=== PATIENT | male | born 1975 | race Caucasian/White ===

== ENCOUNTER 2023-10-01 13:42 | Outpatient (CLI) | payer BC, SELFPAY | END 2023-10-01 13:43 | disposition home or self-care (01) | PROVIDERS: PCP Family Medicine; Visit Provider Family Medicine | DX: I10 Essential (primary) hypertension (principal); R53.83 Other fatigue; Z13.228 Encounter for screening for other metabolic disorders; Z13.29 Encounter for screening for other suspected endocrine disorder | CPT/HCPCS: 80053; 82043; 82570; 84270; 84402; 84403; 84443 ==

== ENCOUNTER 2023-10-13 11:23 | Outpatient (CLI) | payer BC, SELFPAY | END 2023-10-13 11:24 | disposition home or self-care (01) | PROVIDERS: PCP Family Medicine; Visit Provider Family Medicine | DX: Z12.5 Encounter for screening for malignant neoplasm of prostate (principal); Z13.220 Encounter for screening for lipoid disorders; E29.1 Testicular hypofunction; I10 Essential (primary) hypertension | CPT/HCPCS: 80061; 80074; 82533; 82728; 83001; 83002; 84146; 84403; G0103 ==

== ENCOUNTER 2023-11-14 08:49 | Outpatient (CLI) | payer BC, SELFPAY ==
--- NOTE | 2023-11-14 10:39 | W.ANESCHARGE ---
Anesthesia Charges Start Date/Time Anesthesia Start Date: 11/14/23 Anesthesia Start Time: 10:19 Stop Date/Time Anesthesia Stop Date: 11/14/23 Anesthesia Stop Time: 10:37
--- NOTE | 2023-11-14 10:48 | W.ANESCHARGE ---
Anesthesia Charges Start Date/Time Anesthesia Start Date: 11/14/23 Anesthesia Start Time: 10:19 Stop Date/Time Anesthesia Stop Date: 11/14/23 Anesthesia Stop Time: 10:37
== END 2023-11-14 08:50 | disposition home or self-care (01) ==
LOC: OP CLINIC 08:51
PROVIDERS: PCP Family Medicine; Visit Provider Internal Medicine
DX: Z12.11 Encounter for screening for malignant neoplasm of colon (principal); K57.30 Diverticulosis of large intestine without perforation or abscess without bleeding
CPT/HCPCS: 00811; 00812; 45378; J2704

== ENCOUNTER 2023-11-17 19:28 | Outpatient (CLI) | payer BC, SELFPAY ==
--- NOTE | 2023-11-25 09:06 | W.PM.SLEEP ---
Sleep Study Details Details Interpreting Provider: Shad Date of Sleep Study: 11/17/23 Sleep Study Details: STUDY TYPE:? Home unattended ? BMI:? 31.5 ORDERING PROVIDER:Sandie Garvey INDICATION:? Concerns about sleep apnea ? SLEEP SUMMARY:? 578.1 minutes monitored RESPIRATORY SUMMARY:? AHI 54.1 Low oxygen 81 7.7% of study oxygen less than 90% 65.8% of study spent snoring PERIODIC LIMB MOVEMENTS OF SLEEP:? Not recorded during home study CARDIAC:? Range 61-114, mean 76.2 beats per minute IMPRESSION:? Severe obstructive sleep apnea RECOMMENDATION: Treatment options include AutoSet CPAP pressure 4-18, in-lab titration.
== END 2023-11-17 19:29 | disposition home or self-care (01) ==
LOC: SLEEP 19:29
PROVIDERS: PCP Family Medicine; Visit Provider Family Medicine
DX: G47.33 Obstructive sleep apnea (adult) (pediatric) (principal)
CPT/HCPCS: 95806

== ENCOUNTER 2024-03-01 14:47 | Outpatient (CLI) | payer BC, SELFPAY ==
--- NOTE | 2024-03-01 15:00 | CRLHL7_ITS ---
For Patients: As a result of the Century Cures Act, medical imaging exams and procedure reports are released immediately into your electronic medical record. You may view this report before your referring provider. If you have questions, please contact your health care provider. INDICATION: Wheezing, congenital tracheomalacia. TECHNIQUE: High-resolution CT chest without contrast. Supine inspiration and expiration images. COMPARISON: None FINDINGS: Lungs and pleura: 3.4 mm nodule in the lateral left upper lobe on image 26 of series 2. Lungs are otherwise clear. No air trapping. No reticulation. No honeycombing. Trachea within normal limits. No pleural effusions, pleural thickening, or pneumothorax. Heart and vasculature: Heart size is normal. Thoracic aorta and pulmonary artery are normal in caliber. Lymph nodes/mediastinum: No mediastinal, hilar, or axillary adenopathy. Thyroid gland is normal. Chest wall: No masses. Upper abdomen: Normal. Bones: Unremarkable for age. IMPRESSION: 3.4 mm left upper lobe pulmonary nodule. Otherwise normal chest CT. Please note that all CT scans at this facility use dose modulation, iterative reconstruction, and/or weight-based dosing when appropriate to reduce radiation dose to as low as reasonably achievable. Dictated by Derian Gordillo MD @ 03/02/2024 2:54:59 PM (Electronically Signed)
== END 2024-03-01 14:48 | disposition home or self-care (01) ==
LOC: CT 14:47
PROVIDERS: PCP Family Medicine; Visit Provider Internal Medicine
DX: Q32.0 Congenital tracheomalacia (principal); R91.1 Solitary pulmonary nodule
CPT/HCPCS: 71250

== ENCOUNTER 2025-04-04 15:07 | Outpatient (CLI) | payer BC, SELFPAY ==
[2025-04-04 23:22] LABS: Chlamydia DNA Amplified* NOT DETECTED (No Detected); GC DNA Amplified* NOT DETECTED (No Detected)
== END 2025-04-04 15:08 | disposition home or self-care (01) ==
PROVIDERS: PCP Family Medicine; Visit Provider Family Medicine
DX: I10 Essential (primary) hypertension (principal); R73.03 Prediabetes; Z12.5 Encounter for screening for malignant neoplasm of prostate; Z13.6 Encounter for screening for cardiovascular disorders; Z13.1 Encounter for screening for diabetes mellitus; Z11.59 Encounter for screening for other viral diseases; Z11.3 Encounter for screening for infections with a predominantly sexual mode of transmission
CPT/HCPCS: 80053; 80061; 82043; 82570; 86592; 86803; 87491; 87591; G0103

== ENCOUNTER 2025-04-11 11:27 | Outpatient (CLI) | payer BC, SELFPAY ==
--- NOTE | 2025-04-11 12:46 | P.ANES_ITS ---
Anesthesia Charges Start Date/Time Anesthesia Start Date: 04/11/25 Anesthesia Start Time: 12:15 Stop Date/Time Anesthesia Stop Date: 04/11/25 Anesthesia Stop Time: 12:42 Coding CPT Codes CPT Codes: ANES UPR GI NDSC PX NOS - 44661 ([id number]) P2 - PATIENT W/MILD SYST DISEASE, QZ - AGILE TEST LEAD SVC W/O ICER MACHINE BY
--- NOTE | 2025-04-11 12:46 | W.ANESCHARGE ---
Anesthesia Charges Start Date/Time Anesthesia Start Date: 04/11/25 Anesthesia Start Time: 12:15 Stop Date/Time Anesthesia Stop Date: 04/11/25 Anesthesia Stop Time: 12:42 Coding CPT Codes CPT Codes: ANES UPR GI NDSC PX NOS - 79117 ([id number]) P2 - PATIENT W/MILD SYST DISEASE, QZ - DUE DILIGENCE COORDINATOR SVC W/O DERIVATIVES TRADER BY
== END 2025-04-11 11:28 | disposition home or self-care (01) ==
LOC: OP CLINIC 11:28
PROVIDERS: PCP Family Medicine; Visit Provider Surgery
DX: K21.9 Gastro-esophageal reflux disease without esophagitis (principal); K44.9 Diaphragmatic hernia without obstruction or gangrene; K22.89 Other specified disease of esophagus
CPT/HCPCS: 00731; 43239; 88305; J2405; J2704; J3490